=== PATIENT | female | born 1935 | race Caucasian/White ===

== ENCOUNTER 2017-09-15 07:16 | Inpatient (IN) | payer OTHER ==
[~2017-09-15] VITALS: Ht 167.6 cm; Wt 78.4 kg
--- NOTE | ~2017-09-15 | HC ---
[facility] [place] [address] CONSULTATION Name: MARI PHAM Room #: 356-P ADM IN M.R.#: [id number] Admission: 09/15/17 Attend Phys: Alia Diaz MD Discharge: Date of : 35 Report #: [id number] THIS REPORT FOR: //name// CC: ARIANA GANDHI NO PCP Alia Diaz DATE OF SERVICE: 09/16/2017 ATTENDING PHYSICIAN: Alia Diaz MD CONSULTATION REQUESTED BY: Dr. Purcell. HISTORY OF PRESENT ILLNESS: The patient is an 82-year-old white woman admitted through the Emergency Room with history of chest pain, treated in the Emergency Room with aspirin, sublingual nitroglycerin and nitroglycerin patch. This issue appears to have completely resolved. While in the Emergency Room, the patient did apparently receive some Benadryl for some itching that might have been related to Levaquin prescribed this past Wednesday when she had a bladder stimulator battery exchange. She did only take 1 dose of this medication. The patient was treated with Benadryl, which apparently triggered severe pelvic pain and the patient with history of chronic interstitial cystitis, chronic pelvic pain and never treated with Benadryl before. This issue appears to also be better. I did discuss the patient's situation with Dr. Purcell last night and recommended the patient receive treatment with meropenem and vancomycin. The patient's daughter at bedside provides excellent resume of the patient's past medical history and clarifies the issue that the patient was never seen in the Emergency Room before and that herself was evaluated for and confusion regarding use of prednisone confusion of names. The patient currently is feeling better, some abdominal discomfort, some mild itching, but nothing severe. PAST MEDICAL HISTORY: Positive for chronic interstitial cystitis, requiring bladder stimulator. Battery has failed to provide energy for many months and the battery was exchanged at [facility] this past Wednesday. The battery pack and bladder stimulator had not been reprogrammed yet. The patient has history of severe osteoarthritis of the lumbar spine. She also has a history of rheumatoid arthritis, on treatment with leflunomide 20 mg daily. She has bilateral total knee replacement. She has undergone appendectomy and cholecystectomy many years ago. Previous history of myocardial infarction and coronary artery stenting x 4, chronic kidney insufficiency. DRUG ALLERGIES: PENICILLIN. MEDICATIONS: The patient is on treatment at home with acetaminophen/hydrocodone ([place] 325/7.5 mg q.6 hours p.r.n.), aspirin 81 mg daily, atorvastatin [address] [address] CONSULTATION Name: MARI PHAM Room #: 356-P [facility] IN M.R.#: [id number] Admission: 09/15/17 Attend Phys: Alia Diaz MD Discharge: Date of : 35 Report #: [id number], cholestyramine 1 packet 2 times daily, clopidogrel 75 mg daily, famotidine 20 mg 2 times daily, gabapentin 300 mg t.i.d., glucosamine chondroitin, methylsulfonylmethane 1 tablet 2 times daily, leflunomide 20 mg daily, Levaquin 500 mg daily. She only 1 took one dose and this was prescribed this past Wednesday. She is on losartan 50 mg daily, metoprolol 25 mg daily, tramadol p.r.n., sertraline 50 mg daily. Here at the hospital, the patient is on treatment with above medication as well as vancomycin 750 mg daily, meropenem 250 mg b.i.d., doxycycline 100 mg b.i.d., p.r.n. ondansetron, p.r.n. morphine sulfate. We will proceed to discontinue doxycycline and vancomycin. SOCIAL HISTORY: See H and P, old records. REVIEW OF SYSTEMS: As above and see H and P. PHYSICAL EXAMINATION: GENERAL: A well-developed nontoxic looking woman in no distress. VITAL SIGNS: Temperature 98.8, pulse 65, respirations 18, BP 161/72 on the date of admission. Today, temperature 98.6, BP 129/60, O2 saturation is 91-92% on room air. HEENMT: Head normocephalic, atraumatic. Pupils equal, status post cataract surgery, lens implants. Upper plates, missing teeth, jaw. NECK: Supple, no thyromegaly. LUNGS: Crackles, left base posteriorly. HEART: S1, S2. No gallop or murmur. ABDOMEN: Soft, no masses or megaly. PELVIC AND RECTAL: Deferred. RIGHT FLANK: Bladder stimulator, battery pack, surgical wound with marvel in place. No signs of infection. EXTREMITIES: Reveal bilateral total knee replacement, surgical scars, both knees and pretibial edema. NEUROLOGIC: Grossly within normal limits. LABORATORY DATA: Potassium 5.2 yesterday, 4.2 today, CO2 low at 20 millimoles per liter, BUN 47, creatinine 1.7 mg/dL yesterday. BUN 37, creatinine 1.4 today. LFTs abnormal. Alkaline phosphatase 147, SGPT 139, albumin 2.9 g/dL. Lactic acid normal. Troponin 0.25, mildly elevated. Protime normal. WBC 4500, hemoglobin 11.9 g/dL, platelets 159,000. The white blood cell count differential normal yesterday. The urinalysis revealed proteinuria, microscopic hematuria. The microscopic exam of the urine revealed pyuria, microscopic hematuria, no bacteriuria, no crystals. No culture of urine obtained. Blood cultures negative. RADIOLOGY EVALUATION: A chest x-ray revealed cardiomegaly, bilateral shoulder replacement, question haziness in the right upper lung area, mild pulmonary venous prominence, vascular congestion, pulmonary edema. CT scan of abdomen and pelvis revealed possible cystitis, pyelonephritis, advanced degenerative disease [facility] [address] [place] [address] CONSULTATION Name: MARI PHAM Room #: 356-P ADM IN .R.#: [id number] Admission: 09/15/17 Attend Phys: Alia Diaz MD Discharge: Date of : 35 Report #: [id number] of the lumbar spine, tiny umbilical hernia, previous cholecystectomy. ASSESSMENT: 1. Chronic abdominal pain, possibly secondary to interstitial cystitis. 2. Possible acute cystitis, pyelonephritis. 3. Status post recent battery exchange, bladder stimulator. 4. Questionable Levaquin allergy. 5. Abnormal liver function tests and hypoalbuminemia, question etiology. 6. Remote cholecystectomy. 7. Atherosclerotic heart disease, previous myocardial infarction, coronary artery stenting x 4 with history of chest pain, resolved. 8. Bilateral total knee replacement. 9. Bilateral shoulder hemiarthroplasty. 10. Rheumatoid arthritis, on leflunomide. 11. Severe degenerative disease of the spine. SUGGESTIONS: Recommend discontinue vancomycin, doxycycline, will continue meropenem. Obtain ESR, CRP and repeat LFTs. If the patient continues to do well, may consider discharge and symptomatic treatment of her chronic pelvic pain. Dr. Purcell, thank you for requesting my suggestions. <ELECTRONICALLY SIGNED> By: Stewart Coats MD 09/17/17 0837 1025 1926 Stewart Coats MD /nt
--- NOTE | ~2017-09-15 | EKG ---
[place] [address] [facility] [place] [address] ELECTROCARDIOGRAM REPORT Name: MARI PHAM Room #: 356-P ADM IN M.R.#: [id number] Admission: 09/15/17 Attend Phys: Alia Diaz MD Discharge: Date of : 35 Report #: [id number] THIS REPORT FOR: //name// [facility] Test Date: 2017-09-16 Test Time: 07:11:45 Pat Name: MARI PHAM Department: Room: 356 Gender: F Rn Practitioner: ABDULAZIZ : 1935 Requested By: Mikael Purcell Order Number: [id number] MD: Oscar Painter Measurements Intervals [place] Rate: 77 P: -16 [place]: 139 QRS: 140 QRSD: 131 T: 28 QT: 419 QTc: 475 Interpretive Statements Sinus rhythm Atrial premature complex Right bundle branch block Compared to ECG 09/15/2017 07:28:10 Atrial premature complex(es) now present Ventricular premature complex(es) no longer present Electronically Signed On 09-16-2017 16:49:55 CDT by Oscar Painter [email or web address] <ELECTRONICALLY SIGNED> By: Oscar Painter MD, [facility] 09/16/17 1649 0711 0 Oscar Painter MD, [facility] /EPI
--- NOTE | ~2017-09-15 | 2DMMODE ---
[facility] [address] [place] [address] 2 D/M-MODE ECHOCARDIOGRAM Name: MARI PHAM Room #: 170-2 ADM IN M.R.#: [id number] Admission: 09/15/17 Attend Phys: Alia Diaz MD Discharge: Date of : 35 Date of Service: 09/15/17 1455 Report #: [id number] THIS REPORT FOR: //name// APPROVED REPORT Study performed: 09/15/2017 13:40:08 EXAM: Comprehensive 2D, Doppler, and color-flow Echocardiogram Patient Location: ER Room #: 2 Status: routine BSA: 1.84 HR: 73 bpm BP: 196/92 mmHg Rhythm: NSR Other Information Study Quality: Adequate Indications Chest Pain Hypertension/HDD 2D Dimensions RVDd: 31.10 mm LVEF(%): 55.49 (>50%) IVSd: 10.43 (7-11mm) LVOT Diam: 18.03 (18-24mm) LVDd: 39.81 mm PWd: 9.92 (7-11mm) LVDs: 28.48 (25-40mm) Aortic Root: 31.97 mm IVC: 20.00 mm Ty's LVEF: 55.49 % Volumes Left Atrial Volume (Systole) Single Plane 4CH: 63.05 mL Single Plane 2CH: 53.32 mL LA ESV Index: 35.00 mL/m2 Aortic Valve AoV Peak Giovani.: 1.39 m/s AO Peak Gr.: 7.73 mmHg LVOT Max P.93 mmHg LVOT Max V: 1.11 m/s NAHID Vmax: 2.04 cm2 Mitral Valve E/A Ratio: 1.1 [facility] [place] [address] 2 D/M-MODE ECHOCARDIOGRAM Name: MARI PHAM Room #: [facility] ADM IN M.R.#: [id number] Admission: 09/15/17 Attend Phys: Alia Diaz MD Discharge: Date of : 35 Date of Service: 09/15/17 1455 Report #: [id number] MV Decel. Time: 170.00 ms MV E Max Giovani.: 1.05 m/s MV A Giovani.: 0.96 m/s MV PHT: 49.30 ms IVRT: 83.04 ms Pulmonary Valve PV Peak Giovani.: 0.83 m/s PV Peak Gr.: 2.75 mmHg Pulmonary Vein P Vein S: 0.67 m/s P Vein A: 0.29 m/s P Vein D: 0.41 m/s P Vein A Dur.: 110.7 msec P Vein S/D Ratio: 1.63 Tricuspid Valve TR Peak Giovani.: 3.88 m/s TR Peak Gr.: 60.18 mmHg PA Pressure: 70.00 mmHg Left Ventricle The left ventricle is normal size. There is normal LV segmental wall motion. There is normal left ventricular wall thickness. The left ventricular systolic function is normal. The left ventricular ejection fraction is within the normal range. LVEF is 55-60%. The left ventricular diastolic function is normal. Right Ventricle The right ventricle is normal size. The right ventricular systolic function is normal. Atria Left atrium is dilated. Right atrium is dilated. Aortic Valve The aortic valve is normal in structure. Trace aortic regurgitation. There is no aortic valvular stenosis. Mitral Valve The mitral valve is normal in structure. Mild mitral regurgitation. No evidence of mitral valve stenosis. Tricuspid Valve The tricuspid valve is normal in structure. There is mild tricuspid regurgitation. Estimated PAP 70 mmHg. There is severe pulmonary hypertension. [address] [address] 2 D/M-MODE ECHOCARDIOGRAM Name: MARI PHAM Room #: 170-2 ADM IN ..#: [id number] Admission: 09/15/17 Attend Phys: Alia Diaz MD Discharge: Date of : 35 Date of Service: 09/15/17 1455 Report #: [id number] Pulmonic Valve The pulmonary valve is normal in structure. There is no pulmonic valvular regurgitation. Great Vessels The aortic root is normal in size. IVC is dilated and collapses >50% with inspiration. Pericardium There is no pericardial effusion. <Conclusion> The left ventricle is normal size. LVEF is 55-60%. The right ventricle is normal size. The right ventricular systolic function is normal. Left atrium is dilated. Right atrium is dilated. The aortic valve is normal in structure. Trace aortic regurgitation. The mitral valve is normal in structure. Mild mitral regurgitation. The tricuspid valve is normal in structure. There is mild tricuspid regurgitation. Estimated PAP 70 mmHg. There is severe pulmonary hypertension. The pulmonary valve is normal in structure. There is no pericardial effusion. <ELECTRONICALLY SIGNED> By: Esequiel Villavicencio MD 09/15/17 1455 1455 1455 Esequiel Villavicencio MD /INF
--- NOTE | ~2017-09-15 | EKG ---
[place] [address] [facility] [place] [address] ELECTROCARDIOGRAM REPORT Name: MARI PHAM Room #: [facility].#: [id number] Admission: Attend Phys: Discharge: Date of : 35 Report #: [id number] THIS REPORT FOR: //name// [facility] ED Test Date: 2017-09-15 Test Time: 07:28:10 Pat Name: MARI PHAM Department: Room: Gender: F Bingo Floater: : 1935 Requested By: Gris Smith Order Number: [id number] MD: Oscar Painter Measurements Intervals [place] Rate: 62 P: 191 OR: 120 QRS: 102 QRSD: 136 T: 163 QT: 439 QTc: 446 Interpretive Statements Sinus or ectopic atrial rhythm Ventricular premature complex RBBB No previous ECG available for comparison Electronically Signed On 09-15-2017 8:24:48 CDT by Oscar Painter [email or web address] <ELECTRONICALLY SIGNED> By: Oscar Painter MD, [facility] 09/15/17 0824 0728 0728 Oscar Painter MD, [facility] /EPI
[~2017-09-15 07:16] MED LIST: ACYCLOVIR 200200 MG PO; PREDNISOLONE 5 M5 MG PO; PREDNISONE 20 M20 MG PO
[2017-09-15 07:17] VITALS: BP 161/72
[2017-09-15 07:52] LABS: EOSINOPHILS 3.3 % (0.0-3.0); HEMATOCRIT 37.3 % (37.0-47.0); HEMOGLOBIN 12.2 gm/dL (12.0-15.0); LYMPHOCYTES 27.7 % (24.0-44.0); MCH 32.8 pg (26.0-34.0); MCHC 32.8 g/dL (28.0-37.0); MCV 100.2 fL (80.0-100.0); MONOCYTES 9.3 % (1.0-8.0); PLATELET COUNT 149 thou/uL (150-400); POLYS 58.7 % (36.0-66.0); RBC 3.72 mil/uL (4.20-5.00); RDW 13.7 % (10.5-14.5)
[2017-09-15 08:06] LABS: ANION GAP 8 mmol/L (7-16); BUN 47 mg/dL (7-18); CALCIUM 9.2 mg/dL (8.5-10.1); CHLORIDE 112 mmol/L (98-107); CO2 20 mmol/L (21-32); CREATININE 1.7 mg/dL (0.6-1.0); GLUCOSE 95 mg/dL (74-106); POTASSIUM 5.2 mmol/L (3.5-5.1); SODIUM 140 mmol/L (136-145)
[2017-09-15 08:15] LABS: TROPONIN-I <0.06 ng/mL (<0.06)
[2017-09-15 11:36] LABS: APTT 30.1 Seconds (24.5-32.8); PROTIME 10.7 Seconds (9.3-11.4)
[2017-09-15 16:00] VITALS: BP 161/63
[2017-09-15 17:30] VITALS: BP 161/63
[2017-09-15 17:54] VITALS: BP 178/94
[2017-09-15] MEDS ORDERED: ASPIR 8181 MG PO (18:36)
[2017-09-15] MEDS ORDERED: LIPITOR80 MG PO (18:38)
[2017-09-15] MEDS ORDERED: PLAVIX 75 MG TA75 M1 PO (18:39)
[2017-09-15] MEDS ORDERED: NEURONTIN 300300 M1 PO (18:42)
[2017-09-15] MEDS ORDERED: PEPCID20 MG PO (18:42)
[2017-09-15] MEDS ORDERED: LEFLUNOMIDE20 MG PO (18:43)
[2017-09-15] MEDS ORDERED: COZAAR 50 MG TA50 M2 PO (18:44)
[2017-09-15] MEDS ORDERED: LOPRESSOR25 PO (18:44)
[2017-09-15] MEDS ORDERED: SERTRALINE HCL50 MG PO (18:45)
[2017-09-15] MEDS ORDERED: ULTRACET TABLET1 TAB PO (18:48)
[2017-09-15 19:19] VITALS: BP 172/69
[2017-09-15 22:19] LABS: URINE BILIRUBIN NEGATIVE (Negative); URINE BLOOD 3+ (Negative); URINE CLARITY CLEAR; URINE COLOR YELLOW; URINE GLUCOSE-RANDOM* NEGATIVE (Negative); URINE KETONES NEGATIVE (Negative); URINE LEUKOCYTES NEGATIVE (Negative); URINE NITRITE NEGATIVE (Negative); URINE PROTEIN (DIPSTICK) 1+ (Negative); URINE UROBILINOGEN 0.2 E.U./dl (0.2-1.0)
[2017-09-15 22:31] LABS: BACTERIA None Seen /HPF (None Seen); CASTS None Seen /LPF (None Seen); CRYSTALS None Seen /LPF (None Seen); SQUAMOUS 0-3 Few /LPF (0-3); URINE RBC >20 Many /HPF (0-2); URINE WBC 6-15 Few /HPF (0-5)
[2017-09-16 00:45] VITALS: BP 144/78
[2017-09-16 05:00] VITALS: BP 136/77
[2017-09-16 05:49] LABS: HEMATOCRIT 36.2 % (37.0-47.0); HEMOGLOBIN 11.9 gm/dL (12.0-15.0); MCH 32.7 pg (26.0-34.0); MCHC 32.9 g/dL (28.0-37.0); MCV 99.4 fL (80.0-100.0); RBC 3.64 mil/uL (4.20-5.00); RDW 13.8 % (10.5-14.5); WBC 4.5 thou/uL (4.0-11.0)
[2017-09-16 06:14] LABS: ALBUMIN 2.9 g/dL (3.4-5.0); CALCIUM 8.3 mg/dL (8.5-10.1); CREATININE 1.4 mg/dL (0.6-1.0); TOTAL BILIRUBIN 0.8 mg/dL (<0.1-1.0); TOTAL PROTEIN 5.8 g/dL (6.4-8.2); TROPONIN-I 0.25 ng/mL (<0.06)
[2017-09-16 06:24] LABS: POTASSIUM 4.2 mmol/L (3.5-5.1)
[2017-09-16 08:03] VITALS: BP 129/60
[2017-09-16 11:00] LABS: DIRECT BILIRUBIN 0.3 mg/dL (<0.1-0.3)
[2017-09-16 11:33] VITALS: BP 116/58
[2017-09-16 17:00] VITALS: BP 140/60
[2017-09-16 20:05] VITALS: BP 133/69
[2017-09-17 04:00] VITALS: BP 150/74
[2017-09-17 07:48] LABS: HEMATOCRIT 36.6 % (37.0-47.0); HEMOGLOBIN 12.2 gm/dL (12.0-15.0); MCH 32.9 pg (26.0-34.0); MCHC 33.4 g/dL (28.0-37.0); MCV 98.2 fL (80.0-100.0); RBC 3.73 mil/uL (4.20-5.00); RDW 13.4 % (10.5-14.5); WBC 4.7 thou/uL (4.0-11.0)
[2017-09-17 08:02] LABS: CALCIUM 8.8 mg/dL (8.5-10.1); CREATININE 1.4 mg/dL (0.6-1.0); POTASSIUM 4.3 mmol/L (3.5-5.1)
[2017-09-17 08:05] VITALS: BP 188/89
[2017-09-17 11:54] VITALS: BP 152/83
[2017-09-17] MEDS ORDERED: MACROBID 100 M100 M1 PO (13:33)
[2017-09-17 14:59] VITALS: BP 152/83
[2017-09-17 16:39] LABS: ALBUMIN 3.1 g/dL (3.4-5.0); TOTAL BILIRUBIN 0.6 mg/dL (<0.1-1.0); TOTAL PROTEIN 5.6 g/dL (6.4-8.2)
== END 2017-09-17 16:39 | disposition home or self-care (01) | DRG 689 ==
LOC: ER 07:16 → EROBS 11:13 → 3W 11:13 → ENTRNSPT 09-17 16:10 → 3W 09-17 16:39
PROVIDERS: Emergency Medicine; Internal Medicine; Internal Medicine Cardiovascular Disease; Internal Medicine Infectious Disease
DX: N30.10 Interstitial cystitis (chronic) without hematuria (principal); N17.0 Acute kidney failure with tubular necrosis; N12 Tubulo-interstitial nephritis, not specified as acute or chronic; N18.4 Chronic kidney disease, stage 4 (severe); I25.10 Atherosclerotic heart disease of native coronary artery without angina pectoris; T78.40XA Allergy, unspecified, initial encounter; X58.XXXA Exposure to other specified factors, initial encounter; M06.9 Rheumatoid arthritis, unspecified; Z96.653 Presence of artificial knee joint, bilateral; G89.29 Other chronic pain; R10.9 Unspecified abdominal pain; Z96.611 Presence of right artificial shoulder joint; Z96.612 Presence of left artificial shoulder joint; M47.9 Spondylosis, unspecified; N28.9 Disorder of kidney and ureter, unspecified; I12.9 Hypertensive chronic kidney disease with stage 1 through stage 4 chronic kidney disease, or unspecified chronic kidney disease; E78.5 Hyperlipidemia, unspecified; Z60.2 Problems related to living alone; R10.2 Pelvic and perineal pain; L29.9 Pruritus, unspecified; N32.81 Overactive bladder; Z88.1 Allergy status to other antibiotic agents; Z90.49 Acquired absence of other specified parts of digestive tract; Z88.0 Allergy status to penicillin; I25.2 Old myocardial infarction; Z95.5 Presence of coronary angioplasty implant and graft
CPT/HCPCS: 10779